=== PATIENT | female | born 1980 | race African-American/Black ===

== ENCOUNTER 2017-05-29 12:16 | Emergency (ER) | payer SELFPAY ==
[~2017-05-29] VITALS: Ht 160 cm; Wt 93.0 kg
[~2017-05-29 12:16] MED LIST: DOXY100T PO; LEVO.075 PO; LORTA5 PO; SERT100 PO; ZOFR4TAB3 SL
[2017-05-29 12:19] VITALS: BP 145/90; PULSE 111; RESP 16; TEMP 97.7; O2SAT 100
[2017-05-29] MEDS ORDERED: SODIUM CHLOR 0.9% 1000 ML INJ 1,000 ML IV SCH (14:17)
[2017-05-29] MEDS ORDERED: oxyCODONE/ACETAMINOPHEN 5 MG/325 MG TAB PO ONE (14:30)
[2017-05-29] MEDS ORDERED: SODIUM CHLORIDE 0.9% FLUSH 10 ML FLUSH IV FLUSH PRN (14:30)
[2017-05-29] MEDS ORDERED: ONDANSETRON HCL 4 MG/2 ML VIAL IVP ONE (14:30)
[2017-05-29 14:37] LABS: AUTOMATED NEUTROPHIL # 6.9 TH/MM3 (1.8-7.7); BASOPHIL # 0.1 TH/MM3 (0-0.2); BASOPHIL % 0.6 % (0.0-2.0); EOSINOPHIL # 0.1 TH/MM3 (0-0.4); EOSINOPHIL % 0.9 % (0.0-4.0); HEMATOCRIT 36.5 % (35.0-46.0); HEMOGLOBIN 12.2 GM/DL (11.6-15.3); LYMPHOCYTE # 3.2 TH/MM3 (1.0-4.8); MEAN CELL VOLUME 89.8 FL (80.0-100.0); MEAN CORPUSCULAR HEMOGLOBIN 30.1 PG (27.0-34.0); MEAN CORPUSCULAR HGB CONC 33.5 % (32.0-36.0); MEAN PLATELET VOLUME 7.8 FL (7.0-11.0); MONO % 6.3 % (0.0-8.0); MONOCYTE # 0.7 TH/MM3 (0-0.9); NEUT % 63.2 % (16.0-70.0); PLATELET COUNT 297 TH/MM3 (150-450); RED BLOOD COUNT 4.06 MIL/MM3 (4.00-5.30); RED CELL DISTRIBUTION WIDTH 14.5 % (11.6-17.2); WHITE BLOOD COUNT 10.9 TH/MM3 (4.0-11.0)
[2017-05-29 14:55] LABS: ALBUMIN 3.7 GM/DL (3.4-5.0); AST (GOT) 26 U/L (15-37); BLOOD UREA NITROGEN 13 MG/DL (7-18); CALCIUM 8.7 MG/DL (8.5-10.1); CHLORIDE 101 MEQ/L (98-107); CREATININE 1.16 MG/DL (0.50-1.00); GLOMERULAR FILTRATION RATE 64 ML/MIN (>89); GLUCOSE,RANDOM 82 MG/DL (74-106); SODIUM (NA) 136 MEQ/L (136-145)
[2017-05-29 14:59] LABS: ALKALINE PHOSPHATASE 67 U/L (45-117); ALT (GPT) 35 U/L (10-53); TOTAL BILIRUBIN ADULT 0.3 MG/DL (0.2-1.0); TOTAL PROTEIN 8.2 GM/DL (6.4-8.2)
[2017-05-29 15:08] LABS: BACTERIA, URINE MANY /hpf; BILIRUBIN, URINE NEG (NEG); BLOOD, URINE TRACE (NEG); GLUCOSE,URINE NEG (NEG); KETONE, URINE NEG (NEG); MUCUS URINE FEW /lpf (OCC); NITRITE,URINE POS (NEG); SQUAMOUS EPITHELIAL CELL URINE <1 /hpf (0-5); URINE COLOR YELLOW (YELLW/STRAW); URINE LEUKOCYTE ESTERASE LARGE (NEG); WHITE BLOOD CELL CLUMPS RARE
--- NOTE | 2017-05-29 15:24 | RADRPT ---
EXAM DATE/TIME: 05/29/2017 15:06 [place] COMPARISON: CT ABDOMEN & PELVIS W/O CONTRAST, October 26, 2014, 8:51. INDICATIONS : Right flank pain, shortness of breath and pelvic pain for three days. ORAL CONTRAST: No oral contrast ingested. RADIATION DOSE: 8.59 CTDIvol (mGy) MEDICAL HISTORY : Hypothyroidism. SURGICAL HISTORY : Appendectomy. Tubal ligation. ENCOUNTER: Initial ACUITY: 3 days PAIN SCALE: 7/10 LOCATION: Right flank TECHNIQUE: Volumetric scanning of the abdomen and pelvis was performed. Using automated exposure control and ad justment of the mA and/or kV according to patient size, radiation dose was kept as low as reasonably achievable to obtain optimal diagnostic quality images. DICOM format image data is available electro nically for review and comparison. FINDINGS: LOWER LUNGS: The visualized lower lungs are clear. LIVER: Homogeneous density without lesion. There is no dilation of the biliary tree. No calcified gallston es. SPLEEN: Normal size without lesion. PANCREAS: Within normal limits. KIDNEYS: The right kidney remains abnormal in appearance. The kidney is decreased in size multiple punctate co rtical calcifications again noted as well as atrophy and cortical thinning. There are ill-defined cys tic areas again noted. No intravenous contrast was given limiting the sensitivity. The left kidney is stable in appearance as well with scattered small calcifications again noted. There is no hydronephr osis or definite mass. There is mild cortical scarring again noted. There is no dilatation of the ure ters. ADRENAL GLANDS: Within normal limits. VASCULAR: There is no aortic aneurysm. BOWEL/MESENTERY: No oral contrast was given limiting the sensitivity of the exam. The stomach, small bowel, and colon demonstrate no acute abnormality. There is no free intraperitoneal air or fluid. ABDOMINAL WALL: Within normal limits. RETROPERITONEUM: There is no lymphadenopathy. BLADDER: No wall thickening or mass. REPRODUCTIVE: Within normal limits. INGUINAL: There is no lymphadenopathy or hernia. MUSCULOSKELETAL: Within normal limits for patient age. CONCLUSION: 1. Stable abnormal right kidney with punctate calcifications, atrophy and cortical thinning. 2. The left kidney appears stable as well the cortical calcifications and scarring. Everton Dominguez MD on May 29, 2017 at 15:17 Board Certified Radiologist. This report was verified electronically.
[2017-05-29] MEDS ORDERED: cefTRIAXone INJ 1,000 MG in SODIUM CHLORIDE 0.9% INJ 100 ML IV ONE (15:45)
[2017-05-29] MEDS ORDERED: DOXY100C PO (16:47)
--- NOTE | 2017-05-29 16:47 | PD ---
HPI Chief Complaint: Back/ Neck Pain or Injury Time Seen by Provider: 14:11 Travel History International Travel<30 days: No Contact w/Intl Traveler<30days: No Traveled to known affect area: No History of Present Illness HPI Patient is a 36-year-old female who comes in complaining of right flank pain. She says it is been going on for the past few days. She says that she has had issues with recurring urinary tract infections. She was last on antibiotics a little over a week ago. She says she thinks the last antibiotic she was on was Keflex. She says she's had some nausea, but no vomiting. She denies dysuria, but has had frequency and urgency. He says she has felt hot and cold, but has not taken her temperature. She has taken [id number] pain medication without relief of her symptoms. She says nothing seems to make her symptoms better or worse. PFSH Past Medical History Anemia: Yes Blood Disorders: No Depression: Yes Cancer: No Cardiovascular Problems: No Cerebrovascular Accident: No Diabetes: No Diminished Hearing: No Endocrine: No Gastrointestinal Disorders: No GERD: No Genitourinary: Yes (KIDNEY DISEASE) Headaches: Yes Hepatitis: No Hiatal Hernia: No Immune Disorder: No Implanted Vascular Access Dvce: No Kidney Stones: Yes Musculoskeletal: No Neurologic: Yes Psychiatric: No Reproductive: No Respiratory: No Migraines: Yes Renal Failure: No Seizures: No Thyroid Disease: Yes (HYPO) Ulcer: No PNEUMOCCOCAL Vaccine (Year): 2 ?: Not Menopausal: No : 4 Para: 3 Miscarriage: 1 Tubal Ligation: Yes Past Surgical History Abdominal Surgery: No Appendectomy: Yes Cardiac Surgery: No Section: Yes (X3) Cholecystectomy: No Ear Surgery: No Eye Surgery: No Genitourinary Surgery: Yes (LITHOTRIPSY FOR LARGE STONES, NO PAIN WITH STONES) Gynecologic Surgery: Yes (C SECTION X3, TUBAL LIGATION) Neurologic Surgery: No Oral Surgery: No Pacemaker: No Thoracic Surgery: No Other Surgery: Yes Social History Alcohol Use: No Tobacco Use: Yes (/2 PPD) Substance Use: No Allergies-Medications (Allergen,Severity, Reaction): Coded Allergies: Sulfa (Sulfonamide Antibiotics) (Unverified Allergy, Severe, Hives, ) ketorolac (Unverified Allergy, Severe, HIVES, SOB, 05/29/17) morphine (Verified Allergy, Severe, Hives, 05/29/17) prochlorperazine (Unverified Allergy, Severe, HIVES, ITCH, 05/29/17) butorphanol (Unverified Allergy, Mild, HIVES, SOB, 05/29/17) Reported Meds & Prescriptions Reported Meds & Active Scripts Active No Active Prescriptions or Reported Medications Review of Systems Except as stated in HPI: all other systems reviewed are Neg General / Constitutional: Positive: Chills HENT: No: Headaches, Lightheadedness Cardiovascular: No: Chest Pain or Discomfort Respiratory: No: Shortness of Breath Gastrointestinal: Positive: Nausea, Abdominal Pain Genitourinary: Positive: Flank Pain, No: Dysuria Musculoskeletal: No: Myalgias Skin: No Rash, No Itching Neurologic: No: Weakness, Dizziness Physical Exam Narrative GENERAL: Awake and alert, in no acute distress. SKIN: Focused skin assessment warm/dry. HEAD: Atraumatic. Normocephalic. EYES: Pupils equal and round. No scleral icterus. ENT: Mucous membranes pink and moist. NECK: Trachea midline. No JVD. CARDIOVASCULAR: Regular rate and rhythm. No murmur appreciated. RESPIRATORY: No accessory muscle use. Clear to auscultation. Breath sounds equal bilaterally. GASTROINTESTINAL: Abdomen soft, nondistended. Right CVA tenderness. Mild suprapubic tenderness. No rebound or guarding. MUSCULOSKELETAL: No obvious deformities. No clubbing. No cyanosis. No edema. NEUROLOGICAL: Awake and alert. No obvious cranial nerve deficits. Motor grossly within normal limits. Normal speech. PSYCHIATRIC: Appropriate mood and affect; insight and judgment normal. Data Data Last Documented VS Vital Signs Date Time Temp Pulse Resp B/P (MAP) Pulse Ox O2 Delivery O2 Flow Rate FiO2 05/29/17 14:25 (108) Room Air 05/29/17 12:19 97.7 111 16 100 Orders Orders Complete Blood Count With Diff (05/29/17 14:17) Comprehensive Metabolic Panel (05/29/17 14:17) Urinalysis - C+S If Indicated (05/29/17 14:17) Ct Abd/Pel W/O Iv Contrast (05/29/17 14:17) Iv Access Insert/Monitor (05/29/17 14:17) Ecg Monitoring (05/29/17 14:17) Oximetry (05/29/17 14:17) Ondansetron Inj (Zofran Inj) (05/29/17 14:30) Sodium Chlor 0.9% 1000 Ml Inj (Ns 1000 M (05/29/17 14:17) Sodium Chloride 0.9% Flush (Ns Flush) (05/29/17 14:30) Ed Urine Pregnancytest Poc (05/29/17 14:17) Oxycodone-Acetamin 5-325 Mg (Percocet (05/29/17 14:30) Urine Culture (05/29/17 14:25) Ceftriaxone Inj (Rocephin Inj) (05/29/17 15:45) Labs Laboratory Tests Test 05/29/17 14:25 White Blood Count 10.9 TH/MM3 Red Blood Count 4.06 MIL/MM3 Hemoglobin 12.2 GM/DL Hematocrit 36.5 % Mean Corpuscular Volume 89.8 FL Mean Corpuscular Hemoglobin 30.1 PG Mean Corpuscular Hemoglobin Concent 33.5 % Red Cell Distribution Width 14.5 % Platelet Count 297 TH/MM3 Mean Platelet Volume 7.8 FL Neutrophils (%) (Auto) 63.2 % Lymphocytes (%) (Auto) 29.0 % Monocytes (%) (Auto) 6.3 % Eosinophils (%) (Auto) 0.9 % Basophils (%) (Auto) 0.6 % Neutrophils # (Auto) 6.9 TH/MM3 Lymphocytes # (Auto) 3.2 TH/MM3 Monocytes # (Auto) 0.7 TH/MM3 Eosinophils # (Auto) 0.1 TH/MM3 Basophils # (Auto) 0.1 TH/MM3 CBC Comment DIFF FINAL Differential Comment Urine Color YELLOW Urine Turbidity HAZY Urine pH 7.0 Urine Specific [place] 1.014 Urine Protein NEG mg/dL Urine Glucose (UA) NEG mg/dL Urine Ketones NEG mg/dL Urine Occult Blood TRACE Urine Nitrite POS Urine Bilirubin NEG Urine Urobilinogen LESS THAN 2.0 MG/DL Urine Leukocyte Esterase LARGE Urine RBC 6 /hpf Urine WBC 131 /hpf Urine WBC Clumps RARE Urine Squamous Epithelial Cells <1 /hpf Urine Bacteria MANY /hpf Urine Mucus FEW /lpf Microscopic Urinalysis Comment CULTURE INDICATED Blood Urea Nitrogen 13 MG/DL Creatinine 1.16 MG/DL Random Glucose 82 MG/DL Total Protein 8.2 GM/DL Albumin 3.7 GM/DL Calcium Level 8.7 MG/DL Alkaline Phosphatase 67 U/L Aspartate Amino Transf (AST/SGOT) 26 U/L Alanine Aminotransferase (ALT/SGPT) 35 U/L Total Bilirubin 0.3 MG/DL Sodium Level 136 MEQ/L Potassium Level 4.2 MEQ/L Chloride Level 101 MEQ/L Carbon Dioxide Level 30.0 MEQ/L Anion Gap 5 MEQ/L Estimat Glomerular Filtration Rate 64 ML/MIN [facility] Medical Decision Making Medical Screen Exam Complete: Yes Emergency Medical Condition: Yes Medical Record Reviewed: Yes Differential Diagnosis UTI versus pyelonephritis versus Narrative Course Patient is a 36-year-old female who comes in complaining of right flank pain. Exam shows right CVA tenderness as well as suprapubic tenderness. IV established, labs sent. Urinalysis is positive for UTI. CT abdomen and pelvis performed shows no evidence of obstructing stones. Last 24 hours Impressions Abdomen/Pelvis CT 05/29/17 1417 Signed Impressions: Service Date/Time: Monday, May 29, 2017 15:06 - CONCLUSION: 1. Stable abnormal right kidney with punctate calcifications, atrophy and cortical thinning. 2. The left kidney appears stable as well the cortical calcifications and scarring. Everton Dominguez MD Patient given IV fluids, Percocet, Zofran. Given a dose of Rocephin here. She will be discharged with prescription for doxycycline. Given a good R a coupon for the medication. Patient says she has not been on doxycycline before. She is advised follow-up with urology. Advised to return to the ED as needed for any worsening symptoms. Diagnosis Primary Impression: Pyelonephritis Referrals: Sorin Parks MD call for appointment Patient Instructions: General Instructions, Kidney Infection (ED) Additional Instructions: Take all of your antibiotic. Follow-up with urology. Return to the ED as needed for any worsening symptoms. Scripts Doxycycline Hyclate (Doxycycline Hyclate) 100 Mg Cap 100 MG PO BID for Infection, #20 CAP 0 Refills Prov: Denae Gray MD 05/29/17 Disposition: DISCHARGE HOME Condition: Stable Denae Gray MD May 29, 2017 16:47
== END 2017-05-29 16:58 | disposition home or self-care (01) ==
LOC: NEPC 12:16
DX: N12 Tubulo-interstitial nephritis, not specified as acute or chronic (principal); B96.20 Unspecified Escherichia coli [E. coli] as the cause of diseases classified elsewhere; D64.9 Anemia, unspecified; F32.9 Major depressive disorder, single episode, unspecified; E03.9 Hypothyroidism, unspecified; F17.200 Nicotine dependence, unspecified, uncomplicated; Z87.442 Personal history of urinary calculi
CPT/HCPCS: 74176; 80053; 81001; 84703; 85025; 87077; 87086; 87186; 96374; 96375; 99285; J0696; J2405; J7030